=== PATIENT | female | born 1995 | race American Indian/Alaskan Native ===

== ENCOUNTER 2017-12-27 16:33 | Emergency (ER) | payer MEDICAID ==
[2017-12-27 17:38] LABS: BASO % 0.6 % (0.0-2.0); EOS % 0.8 % (0.0-4.0); HEMOGLOBIN 11.5 g/dL (11.0-16.0); LYMPH # 1.3 K/uL (1.0-4.3); LYMPH % 38.6 % (20.0-40.0); MEAN CELL VOLUME 90.9 fL (81.0-99.0); MEAN CORPUSCULAR HEMOGLOBIN 29.8 pg (27.0-31.0); MEAN CORPUSCULAR HGB CONC 32.8 g/dL (33.0-37.0); MEAN PLATELET VOLUME 8.7 fL (7.2-11.7); MONO # 0.3 K/uL (0.0-0.8); MONO % 7.9 % (0.0-10.0); NEUT # 1.8 K/uL (1.8-7.0); NEUT % 52.1 % (50.0-75.0); NRBC % 0.1 % (0.0-2.0); RBC 3.87 Mil/uL (3.80-5.20); RED CELL DISTRIBUTION WIDTH 13.9 % (11.5-14.5); WHITE BLOOD COUNT 3.4 K/uL (4.8-10.8)
[2017-12-27 17:48] LABS: SQUAMOUS EPITHIAL 4 /hpf (0-5); URINE BACTERIA RARE (<OCC); URINE BILIRUBIN NEGATIVE (NEGATIVE); URINE BLOOD NEGATIVE (NEGATIVE); URINE CLARITY Clear (Clear); URINE COLOR Yellow (YELLOW); URINE GLUCOSE (UA) NORMAL (Normal); URINE LEUKOCYTE ESTERASE NEG Leu/uL (Negative); URINE NITRATE NEGATIVE (NEGATIVE); URINE PROTEIN NEGATIVE (NEGATIVE)
[2017-12-27 17:53] LABS: BARBITURATES, UR NEGATIVE (NEGATIVE); BENZODIAZEPINES, UR NEGATIVE (NEGATIVE); OPIATES, UR NEGATIVE (NEGATIVE)
[2017-12-27 17:55] LABS: ALB/GLOB RATIO 1.2 (1.0-2.1); ALBUMIN 4.2 g/dL (3.5-5.0); ALT/SGPT 37 U/L (9-52); AST/SGOT 33 U/L (14-36); BLOOD UREA NITROGEN 10 mg/dL (7-17); CALCIUM 9.2 mg/dl (8.6-10.4); GFR AFRICAN-AMERICAN > 60; GFR NON-AFRICAN AMERICAN > 60; PHENCYCLIDINE, UR POSITIVE (NEGATIVE)
--- NOTE | 2017-12-27 18:51 | C.PDOC ---
History Of Present Illness 22 y/o female is brought to ED by her sister for evaluation. As per triage's note, sister states the patient "trashed her apartment". Currently, patient is calm and denies SI, HI or any physical complaints. Chief Complaint (Nursing): Psychiatric Evaluation History Per: Patient History/Exam Limitations: no limitations Onset/Duration Of Symptoms: Hrs Current Symptoms Are (Timing): Still Present Suicide/Self Injury Attempted (Context): None Modifying Factor(s): None Associated Symptoms: denies: Suicidal Thoughts, Suicidal Plan Involuntary Hold By: None Recent travel outside of the [place]: No Past Medical History Reviewed: Historical Data, Nursing Documentation, Vital Signs Vital Signs: Last Vital Signs Temp 98.5 F 12/27/17 20:33 Pulse 72 12/27/17 20:33 Resp 20 12/27/17 20:33 BP 153/90 H 12/27/17 20:33 Pulse Ox 100 12/27/17 20:33 - Medical History PMH: Schizophrenia - [facility] Procedures GROUP PSYCHOTHERAPY (10/22/17) INDIVIDUAL PSYCHOTHERAPY, SUPPORTIVE (10/22/17) Family History: States: No Known Family Hx - Social History Hx Alcohol Use: Yes Hx Substance Use: No - Immunization History Hx Tetanus Toxoid Vaccination: No Hx Influenza Vaccination: No Hx Pneumococcal Vaccination: No Review Of Systems Constitutional: Negative for: Fever, Chills, Weakness, Malaise Gastrointestinal: Negative for: Nausea, Vomiting, Diarrhea Skin: Negative for: Rash Neurological: Negative for: Weakness, Numbness, Confusion Psych: Negative for: Anxiety, Suicidal ideation Physical Exam - Physical Exam Appears: Well, Non-toxic, No Acute Distress, Other (calm) Skin: Normal Color, Warm, Dry Head: Atraumatic, Normacephalic Eye(s): bilateral: Normal Inspection Oral Mucosa: Moist Neck: Supple Chest: Symmetrical, No Tenderness Cardiovascular: Rhythm Regular Respiratory: Normal Breath Sounds, No Decreased Breath Sounds, No Rales, No Rhonchi, No Wheezing Gastrointestinal/Abdominal: Soft, No Tenderness, No Distention, No Guarding, No Rebound Extremity: Normal ROM, No Tenderness, No Pedal Edema Extremity: Bilateral: Normal Color And Temperature, Normal ROM Neurological/Psych: Oriented x3, Normal Speech, Normal Cognition ED Course And Treatment - Laboratory Results Result Diagrams: 12/27/17 17:33 12/27/17 17:33 O2 Sat by Pulse Oximetry: 99 (RA) Pulse Ox Interpretation: Normal Medical Decision Making Medical Decision Making: Ordered blood work and urinalysis. Disposition - Disposition Referrals: Shalom Thompson, [Non-Staff] - Disposition: HOME/ ROUTINE Disposition Time: 19:15 Condition: GOOD Additional Instructions: Thank you for letting us take care of you today. The emergency medical care you received today was directed at your acute symptoms. If you were prescribed any medication, please fill it and take as directed. It may take several days for your symptoms to resolve. Return to the Emergency Department if your symptoms worsen, do not improve, or if you have any other problems. Please contact your doctor or call one of the physicians/clinics you have been referred to that are listed on the Patient Visit Information form that is included in your discharge packet. Bring any paperwork you were given at discharge with you along with any medications you are taking to your follow up visit. Our treatment cannot replace ongoing medical care by a primary care provider (PCP) outside of the emergency department. Thank you for allowing the [facility] team to be part of your care today. Follow up with your doctor next week for re-evaluation and further management. Instructions: Polysubstance Abuse (ED) Forms: [employer] (Chilean) - Clinical Impression Clinical Impression: PCP (phencyclidine) abuse - Scribe Statement The provider has reviewed the documentation as recorded by the Sakinaiblexis Mccarthy All medical record entries made by the Scribe were at my direction and personally dictated by me. I have reviewed the chart and agree that the record accurately reflects my personal performance of the history, physical exam, medical decision making, and the department course for this patient. I have also personally directed, reviewed, and agree with the discharge instructions and disposition.
[2017-12-27 20:33] VITALS: BP 153/90; PULSE 72; RESP 20; TEMP 98.5
[2017-12-28 00:32] VITALS: O2SAT 99
== END 2017-12-27 20:38 | disposition home or self-care (01) ==
LOC: C.ER 16:33
DX: F16.10 Hallucinogen abuse, uncomplicated (principal)

== ENCOUNTER 2018-05-18 20:07 | Emergency (ER) | payer MEDICAID ==
[2018-05-18 20:08] VITALS: BMI 25.1
[2018-05-18 20:53] VITALS: BP 138/87; PULSE 106; RESP 16; TEMP 98.7; O2SAT 99
--- NOTE | 2018-05-18 20:59 | C.PDOC ---
History Of Present Illness 23 y/o female with history of psych problems presents to ED stating " I want to be checked in the psych unit". Patient is well known to ED for malingering and patient was discharged from [facility] earlier today. Patient then went to [facility] and called EMS to be brought to ED. No other complaints at this time. Time Seen by Provider: 05/18/18 20:57 Chief Complaint (Nursing): Psychiatric Evaluation History Per: Patient History/Exam Limitations: no limitations Onset/Duration Of Symptoms: Days Current Symptoms Are (Timing): Still Present Suicide/Self Injury Attempted (Context): None Past Medical History Reviewed: Historical Data, Nursing Documentation, Vital Signs Vital Signs: Last Vital Signs Temp 98.7 F 05/18/18 20:47 Pulse 106 H 05/18/18 20:47 Resp 16 05/18/18 20:47 BP 138/87 05/18/18 20:47 Pulse Ox 99 05/18/18 21:28 - Medical History PMH: Bipolar Disorder, Depression, Schizophrenia Surgical History: No Surg Hx - [facility] Procedures GROUP PSYCHOTHERAPY (10/22/17) INDIVIDUAL PSYCHOTHERAPY, SUPPORTIVE (10/22/17) Family History: States: No Known Family Hx - Social History Hx Alcohol Use: No Hx Substance Use: No (PCP) - Immunization History Hx Tetanus Toxoid Vaccination: No Hx Influenza Vaccination: No Hx Pneumococcal Vaccination: No Review Of Systems Constitutional: Negative for: Fever, Chills Cardiovascular: Negative for: Chest Pain Respiratory: Negative for: Shortness of Breath Gastrointestinal: Negative for: Nausea, Vomiting Skin: Negative for: Rash Psych: Negative for: Anxiety, Suicidal ideation Physical Exam - Physical Exam Appears: Non-toxic, No Acute Distress, Other (Obese) Skin: Warm, Dry Head: Atraumatic, Normacephalic Eye(s): bilateral: Normal Inspection Oral Mucosa: Moist Neck: Normal ROM, Supple Cardiovascular: Rhythm Regular Respiratory: Normal Breath Sounds, No Rales, No Rhonchi, No Wheezing Gastrointestinal/Abdominal: Soft, No Tenderness, No Guarding, No Rebound Neurological/Psych: Oriented x3, Normal Speech, Normal Cognition ED Course And Treatment O2 Sat by Pulse Oximetry: 99 (RA) Pulse Ox Interpretation: Normal Medical Decision Making Medical Decision Making: psych malingering, no acute issues eval @ [facility] just prior to BIBA (via [facility] ambulance) today for same denies SI/HI ok for opt f/u. Disposition Doctor Will See Patient In The: Office Counseled Patient/Family Regarding: Studies Performed, Diagnosis - Disposition Referrals: [facility] [Outside] [facility] [Outside] [place] [Outside] Disposition: HOME/ ROUTINE Disposition Time: 20:58 Condition: GOOD Additional Instructions: continue your normal outpatient psych follow-up Instructions: Schizophrenia (DC) Forms: [employer] (Haitian) - Clinical Impression Clinical Impression: Schizophrenia, Malingering - Scribe Statement The provider has reviewed the documentation as recorded by the Scribe Martín Pearce All medical record entries made by the Sakinaibe were at my direction and personally dictated by me. I have reviewed the chart and agree that the record accurately reflects my personal performance of the history, physical exam, medical decision making, and the department course for this patient. I have also personally directed, reviewed, and agree with the discharge instructions and disposition.
== END 2018-05-18 21:38 | disposition home or self-care (01) ==
LOC: C.ER 20:07
DX: F20.9 Schizophrenia, unspecified (principal); Z76.5 Malingerer [conscious simulation]

== ENCOUNTER 2018-05-29 05:30 | Emergency (ER) | payer MEDICAID ==
[2018-05-29 05:30] VITALS: BMI 25.1
[2018-05-29 05:41] VITALS: BP 136/86; RESP 20
--- NOTE | 2018-05-29 05:58 | C.PDOC ---
History Of Present Illness 23 year old female presents to the ED requesting for a place to rest. Patient was seen earlier [place] [facility] [place] signed out and presented here today. Patient denies any complaints or pain at this time. Chief Complaint (Nursing): Medical Clearance History Per: Patient History/Exam Limitations: no limitations Onset/Duration Of Symptoms: Hrs Current Symptoms Are (Timing): Still Present Reports Recently: Seen In ED [place] [place] Recent travel outside of the [place]: No Additional History Per: Patient Past Medical History Reviewed: Historical Data, Nursing Documentation, Vital Signs Vital Signs: Last Vital Signs Temp 99 F 05/29/18 05:31 Pulse 86 05/29/18 05:31 Resp 20 05/29/18 05:31 BP 136/86 05/29/18 05:31 Pulse Ox 98 05/29/18 05:58 - Medical History PMH: Bipolar Disorder, Depression, Schizophrenia Denies: Asthma, Atrial Fibrillation, Bronchitis, Cardia Arrhythmia, CHF, COPD , Diabetes, Emphysema, Hepatitis, HIV, HTN, Hypercholesterolemia, Mitral Valve Prolapse, Peripheral Edema, Pneumonia, Pulmonary Embolism, Chronic Kidney Disease, Seizures, Sexually Transmitted Disease, Sleep Apnea Surgical History: No Surg Hx Denies: Pacemaker - [facility] Procedures GROUP PSYCHOTHERAPY (10/22/17) INDIVIDUAL PSYCHOTHERAPY, SUPPORTIVE (10/22/17) Family History: States: Unknown Family Hx - Social History Hx Alcohol Use: No Hx Substance Use: No (PCP) - Immunization History Hx Tetanus Toxoid Vaccination: No Hx Influenza Vaccination: No Hx Pneumococcal Vaccination: No Review Of Systems Constitutional: Negative for: Fever, Chills Cardiovascular: Negative for: Chest Pain, Palpitations Respiratory: Negative for: Cough, Shortness of Breath Gastrointestinal: Negative for: Nausea, Vomiting, Abdominal Pain Psych: Negative for: Depression, Suicidal ideation Physical Exam - Physical Exam Appears: Non-toxic, No Acute Distress Skin: Normal Color, Warm, Dry Head: Atraumatic, Normacephalic Eye(s): bilateral: Normal Inspection Neck: Normal ROM, Supple Chest: Symmetrical Cardiovascular: Rhythm Regular Respiratory: Normal Breath Sounds, No Rales, No Rhonchi, No Wheezing Gastrointestinal/Abdominal: Soft, No Tenderness, No Guarding, No Rebound Extremity: Normal ROM, No Tenderness, No Swelling Neurological/Psych: Oriented x3, Normal Speech Gait: Steady ED Course And Treatment O2 Sat by Pulse Oximetry: 98 (ON RA) Pulse Ox Interpretation: Normal Medical Decision Making Medical Decision Making: Old records reviewed: Patient was seen at [place] ED yesterday and the day before for similar complaints, as per [place] chart patient has a history of malingering. Disposition Counseled Patient/Family Regarding: Diagnosis - Disposition Referrals: [facility] [Outside] Disposition: HOME/ ROUTINE Disposition Time: 05:57 Forms: [employer] (S[place] Arabian) - POA Present On Arrival: None - Clinical Impression Clinical Impression: Medical assessment, No acute medical problems - Scribe Statement The provider has reviewed the documentation as recorded by the Scribe Victoriano Morillo All medical record entries made by the Scribe were at my direction and personally dictated by me. I have reviewed the chart and agree that the record accurately reflects my personal performance of the history, physical exam, medical decision making, and the department course for this patient. I have also personally directed, reviewed, and agree with the discharge instructions and disposition.
[2018-05-29 07:18] VITALS: PULSE 82; TEMP 98; O2SAT 97
== END 2018-05-29 07:16 | disposition home or self-care (01) ==
LOC: C.ER 05:30
DX: Z04.8 Encounter for examination and observation for other specified reasons (principal)